=== PATIENT | female | born 1975 | race American Indian/Alaskan Native ===

== ENCOUNTER 2017-02-01 00:48 | Emergency (ER) | payer MEDICAID ==
[2017-02-01 06:37] VITALS: BP 110/70
[2017-02-01] MEDS ORDERED: DELTASONE PO ONE (08:39)
--- NOTE | 2017-02-01 08:55 | Emergency Department Report ---
HPI - General Chief Complaint: Sore Throat Time Seen by Provider: 02/01/17 08:25 - HPI HPI: Is a 41-year-old female presents to ED complaining of throat pain 3 days. Patient states she just had a baby 2 months ago and is currently breast- feeding. She describes throat pain as a burning type sensation. Patient states she has taken no medication for the pain. Patient states pain with swallowing and eating sometimes. Patient denies any chest pain. patient denies fever, chills, nausea, vomiting, abdominal pain, shortness of breath, difficulty breathing ED Past Medical Hx - Past Medical History Previous Medical History?: Yes Hx Hypertension: No Hx CVA: Yes (TIA 10/2015) Hx Heart Attack/AMI: Yes (A-FIB) Hx Congestive Heart Failure: No Hx Diabetes: No Hx Deep Vein Thrombosis: No Hx Headaches / Migraines: Yes Hx Asthma: No Hx COPD: No Additional medical history: Low blood pressure. AFIB. CHOLESTEROL, GESTATIONAL DIABETES - Surgical History Past Surgical History?: Yes Additional Surgical History: fibroids removed in 2009 - Social History Smoking Status: Former Smoker Substance Use Type: None - Medications Home Medications: Home Medications Medication Instructions Recorded Confirmed Last Taken Type Aspirin EC [Aspirin Enteric Coated 325 mg PO QDAY #30 tablet 11/05/15 12/16/15 12/02/15 Rx TAB] Simvastatin [Zocor TAB] 20 mg PO QHS #30 tablet 11/05/15 12/16/15 12/02/15 Rx Benzonatate [Tessalon Perles] 100 mg PO Q8HR #20 capsule 12/03/15 12/16/15 Unknown Rx Methocarbamol [Robaxin TAB] 750 mg PO Q8H PRN #30 tablet 12/16/15 Unknown Rx Naproxen [Naprosyn TAB] 500 mg PO BID PRN #20 tablet 12/16/15 Unknown Rx traMADol [Ultram 50 MG tab] 50 - 100 mg PO Q8HR PRN #20 tablet 12/16/15 Unknown Rx Fluticasone [Flonase] 1 spray NS QDAY #1 bottle 01/10/16 Unknown Rx predniSONE [Deltasone] 50 mg PO QDAY #5 tab 01/10/16 Unknown Rx Famotidine [Pepcid] 20 mg PO BID #40 tablet 02/01/17 Unknown Rx Ibuprofen [Motrin] 600 mg PO Q8H PRN #30 tablet 02/01/17 Unknown Rx ED Review of Systems ROS: Stated complaint: THROAT PAIN/FEVER Other details as noted in HPI Constitutional: denies: chills, fever Eyes: denies: eye pain, eye discharge, vision change ENT: throat pain. denies: ear pain, dental pain, hearing loss, congestion Respiratory: denies: cough, shortness of breath, wheezing Cardiovascular: denies: chest pain, palpitations Endocrine: no symptoms reported Gastrointestinal: denies: abdominal pain, nausea, vomiting, diarrhea, constipation, hematemesis Genitourinary: denies: urgency, dysuria, frequency, hematuria, discharge Musculoskeletal: denies: back pain, joint swelling, arthralgia Skin: denies: rash, lesions Neurological: denies: headache, weakness, numbness, paresthesias, abnormal gait Psychiatric: denies: anxiety, depression Hematological/Lymphatic: denies: easy bleeding, easy bruising Physical Exam - Physical Exam Vital Signs: Vital Signs 02/01/17 02/01/17 01:21 06:28 Temperature 98.8 F 98.7 F Pulse Rate 103 H 70 Respiratory 18 18 Rate Blood Pressure 118/78 110/70 O2 Sat by Pulse 99 98 Oximetry Physical Exam: GENERAL: Alert and oriented x3, no apparent distress, Normal Gait, atraumatic. HEAD: Head is normocephalic and a-traumatic. EYES: Extra ocular muscles are intact. Pupils are equal, round, and reactive to light and accommodation. EARS: symetrical, atraumatic, non tender, ear canal clear and moderate cerumen, tympanic membrance non inflamed. gross auditory nml bilaterally. NOSE: Nose symetrical, Nontender,Nares appeared normal. MOUTH:Mouth is well hydrated and without lesions. Tonsils nonerythematous or swollen, Uvula midline, Tongue not elevated. Mucous membranes are moist. Posterior pharynx clear, no exudate or lesions. Patent airways. NECK: Supple. Non edematous, No carotid bruits. Anterior cervical lymphadenopathy or thyromegaly. No C-spine tenderness LUNGS: Symetrical with respiration, No wheezing, no rales or crackles, CTAB. HEART: S1, S2 present, regular rate and rhythm without murmur, no rubs, no gallops. ABDOMEN: No organomegaly was noted,Positive bowel sounds, soft, and non- distended. . Nontender to palpation on all Quadrants, NO CVA tenderness. NEUROLOGIC: No focal Deficit, Cranial nerves II through XII are grossly intact. No loss of sensation, PSYCHIATRIC: Mood is congruent with affect, denies suicidal or homicidal ideations. SKIN: Warm and dry, No lesions, No ulceration or induration present. ED Course Vital Signs 02/01/17 02/01/17 01:21 06:28 Temperature 98.8 F 98.7 F Pulse Rate 103 H 70 Respiratory 18 18 Rate Blood Pressure 118/78 110/70 O2 Sat by Pulse 99 98 Oximetry ED Medical Decision Making - Medical Decision Making 41-year-old female presents with pharyngitis. ED course: Patient received prednisone and Magic mouthwash in ED. Tests rapid strep test negative. Discussed findings with patient. Discussed the patient follow up with primary care physician. Discussed symptomatic relief with patient. Discussed Motrin as pain. Discussed rest, sent from acid which foods. - Differential Diagnosis 1 acid reflux 2. Pharyngitis viral 3. Common cold 4. Strep throat Critical care attestation.: If time is entered above; I have spent that time in minutes in the direct care of this critically ill patient, excluding procedure time. ED Disposition Clinical Impression: Pharyngitis Qualifiers: Pharyngitis/tonsillitis etiology: unspecified etiology Qualified Code(s): J02.9 - Acute pharyngitis, unspecified Acid reflux Qualifiers: Esophagitis presence: without esophagitis Qualified Code(s): K21.9 - Gastro- esophageal reflux disease without esophagitis Disposition: DISCHARGED TO HOME OR SELFCARE Is pt being admited?: No Does the pt Need Aspirin: No Condition: Stable Instructions: Famotidine (By mouth), Pharyngitis (ED), Gastroesophageal Reflux Disease (ED), Cold Symptoms (ED) Prescriptions: Famotidine [Pepcid] 20 mg PO BID #40 tablet Ibuprofen [Motrin] 600 mg PO Q8H PRN #30 tablet PRN Reason: Pain Referrals: PRIMARY MD ROSINA [Primary Care Provider] - 3-5 Days ABENA RAMOS MD [Referring] - 3-5 Days [facility] [Outside] - 3-5 Days [facility] [Outside] - 3-5 Days [facility] [Outside] - 3-5 Days Forms: Work/School Release Form(ED) Time of Disposition: 09:57
[2017-02-01] MEDS ORDERED: MAGIC MOUTHWASH PO ONE (09:00)
== END 2017-02-01 10:28 | disposition home or self-care (01) ==
LOC: ED 00:48
DX: K21.9 Gastro-esophageal reflux disease without esophagitis (principal); J02.9 Acute pharyngitis, unspecified; I25.2 Old myocardial infarction; G43.909 Migraine, unspecified, not intractable, without status migrainosus; Z86.73 Personal history of transient ischemic attack (TIA), and cerebral infarction without residual deficits; Z87.891 Personal history of nicotine dependence
CPT/HCPCS: 87116; 87430; 99282; J7512

== ENCOUNTER 2018-04-07 22:46 | Emergency (ER) | payer MEDICAID ==
[2018-04-07 23:55] LABS: BUN/Creatinine Ratio 13; Blood Urea Nitrogen 9 mg/dL (7-17); Calcium 8.3 mg/dL (8.4-10.2); Hemolysis Index 6
[2018-04-08 00:25] LABS: Basophils % (Auto) 0.3 % (0.0-1.8); Eosinophils # (Auto) 0.1 K/mm3 (0.0-0.4); Eosinophils % (Auto) 1.7 % (0.0-4.3); Hematocrit 38.1 % (30.3-42.9); Hemoglobin 12.7 gm/dl (10.1-14.3); Lymphocytes # (Auto) 3.3 K/mm3 (1.2-5.4); Lymphocytes % (Auto) 49.8 % (13.4-35.0); Mean Corpuscular HGB Conc 33 % (30-34); Mean Corpuscular Hemoglobin 30 pg (28-32); Mean Corpuscular Volume 89 fl (79-97); Monocytes # (Auto) 0.3 K/mm3 (0.0-0.8); Platelet Count 289 K/mm3 (140-440); Red Blood Count 4.27 M/mm3 (3.65-5.03); Red Cell Distribution Width 13.8 % (13.2-15.2)
--- NOTE | 2018-04-08 02:06 | Emergency Department Report ---
ED Female HPI - General Chief complaint: Urogenital-Female Stated complaint: ABDOMINAL,VAGINAL PAIN Time Seen by Provider: 04/08/18 02:02 Source: patient Mode of arrival: Ambulatory Limitations: No Limitations - History of Present Illness Initial comments: Patient presents with recurrence of vaginal bleeding which occurred 2 weeks ago , was heavy, but resolved and which has now returned again over the past week, using proximally 20-24 pads a day. She has a prior history of fibroids, but reports that she had 2 operations for this in 2011, and 2016. She is not , does not feel , has no fever chills or diaphoresis, and otherwise feels stable, but has never had bleeding at the significance. She has minor lower abdominal discomfort, without radiation, no chest pain, no headache, no lightheadedness, no syncope. She has a history of intermittent atrial fibrillation, reports that she had discussed with her doctor about taking blood thinners, but reports that this was never followed up on, although she reports she does take aspirin daily as a result of her atrial fibrillation. She takes no other blood thinners. MD Complaint: vaginal bleeding Onset/Timin -: week(s) Radiation: suprapubic, other (pelvic) Severity: moderate Severity scale (0 -10): 4 Quality: cramping Consistency: intermittent Improves with: none Worsens with: none Are you Now?: No Associated Symptoms: vaginal bleeding - Related Data Previous Rx's Medication Instructions Recorded Last Taken Type Aspirin EC [Aspirin Enteric Coated 325 mg PO QDAY #30 tablet 11/05/15 12/02/15 Rx TAB] Simvastatin [Zocor TAB] 20 mg PO QHS #30 tablet 11/05/15 12/02/15 Rx Benzonatate [Tessalon Perles] 100 mg PO Q8HR #20 capsule 12/03/15 Unknown Rx Methocarbamol [Robaxin TAB] 750 mg PO Q8H PRN #30 tablet 12/16/15 Unknown Rx Naproxen [Naprosyn TAB] 500 mg PO BID PRN #20 tablet 12/16/15 Unknown Rx traMADol [Ultram 50 MG tab] 50 - 100 mg PO Q8HR PRN #20 tablet 12/16/15 Unknown Rx Fluticasone [Flonase] 1 spray NS QDAY #1 bottle 01/10/16 Unknown Rx predniSONE [Deltasone] 50 mg PO QDAY #5 tab 01/10/16 Unknown Rx Famotidine [Pepcid] 20 mg PO BID #40 tablet 02/01/17 Unknown Rx Ibuprofen [Motrin] 600 mg PO Q8H PRN #30 tablet 02/01/17 Unknown Rx HYDROcodone/APAP 5-325 [[place] 1 each PO Q6HR PRN #20 tablet 04/08/18 Unknown Rx 5/325] medroxyPROGESTERone ACETATE 10 mg PO QDAY #5 tablet 04/08/18 Unknown Rx [Provera] Allergies Allergy/AdvReac Type Severity Reaction Status Date / Time acetaminophen [From Percocet] Allergy Nausea Verified 04/07/18 23:03 oxycodone HCl [From Percocet] Allergy Nausea Verified 12/15/15 15:55 ED Review of Systems ROS: Stated complaint: ABDOMINAL,VAGINAL PAIN Other details as noted in HPI Comment: All other systems reviewed and negative Constitutional: denies: chills, fever ENT: denies: ear pain, throat pain Respiratory: denies: cough, shortness of breath, wheezing Cardiovascular: denies: chest pain, palpitations Endocrine: no symptoms reported Gastrointestinal: denies: abdominal pain, nausea, diarrhea Genitourinary: denies: urgency, dysuria, frequency, hematuria Musculoskeletal: denies: back pain, joint swelling, arthralgia Skin: denies: rash, lesions Neurological: denies: headache, weakness, paresthesias Psychiatric: denies: anxiety, depression Hematological/Lymphatic: easy bleeding (vaginally) ED Past Medical Hx - Past Medical History Hx Hypertension: No Hx CVA: Yes (TIA 10/2015) Hx Heart Attack/AMI: Yes (A-FIB) Hx Congestive Heart Failure: No Hx Diabetes: No Hx Deep Vein Thrombosis: No Hx Headaches / Migraines: Yes Hx Asthma: No Hx COPD: No Additional medical history: Low blood pressure,anemic with blood transfusion. AFIB. CHOLESTEROL, GESTATIONAL DIABETES-both resolved post - Surgical History Additional Surgical History: fibroids removed in 2009, fibroids removed again last year PP with blood transfusion - Social History Smoking Status: Current Every Day Smoker Substance Use Type: None - Medications Home Medications: Home Medications Medication Instructions Recorded Confirmed Last Taken Type Aspirin EC [Aspirin Enteric Coated 325 mg PO QDAY #30 tablet 11/05/15 12/16/15 12/02/15 Rx TAB] Simvastatin [Zocor TAB] 20 mg PO QHS #30 tablet 11/05/15 12/16/15 12/02/15 Rx Benzonatate [Tessalon Perles] 100 mg PO Q8HR #20 capsule 12/03/15 12/16/15 Unknown Rx Methocarbamol [Robaxin TAB] 750 mg PO Q8H PRN #30 tablet 12/16/15 Unknown Rx Naproxen [Naprosyn TAB] 500 mg PO BID PRN #20 tablet 12/16/15 Unknown Rx traMADol [Ultram 50 MG tab] 50 - 100 mg PO Q8HR PRN #20 tablet 12/16/15 Unknown Rx Fluticasone [Flonase] 1 spray NS QDAY #1 bottle 01/10/16 Unknown Rx predniSONE [Deltasone] 50 mg PO QDAY #5 tab 01/10/16 Unknown Rx Famotidine [Pepcid] 20 mg PO BID #40 tablet 02/01/17 Unknown Rx Ibuprofen [Motrin] 600 mg PO Q8H PRN #30 tablet 02/01/17 Unknown Rx HYDROcodone/APAP 5-325 [[place] 1 each PO Q6HR PRN #20 tablet 04/08/18 Unknown Rx 5/325] medroxyPROGESTERone ACETATE 10 mg PO QDAY #5 tablet 04/08/18 Unknown Rx [Provera] ED Physical Exam - General Limitations: No Limitations General appearance: alert, in no apparent distress - Head Head exam: Present: atraumatic, normocephalic - Eye Eye exam: Present: PERRL, EOMI - ENT ENT exam: Present: normal exam, mucous membranes moist - Neck Neck exam: Present: normal inspection - Respiratory Respiratory exam: Present: normal lung sounds bilaterally. Absent: respiratory distress, wheezes, rales, rhonchi - Cardiovascular Cardiovascular Exam: Present: regular rate - GI/Abdominal GI/Abdominal exam: Present: soft, normal bowel sounds. Absent: tenderness, guarding, rebound, rigid - Extremities Exam Extremities exam: Present: normal inspection - Back Exam Back exam: Present: normal inspection - Neurological Exam Neurological exam: Present: alert, oriented X3 - Psychiatric Psychiatric exam: Present: normal affect, normal mood - Skin Skin exam: Present: warm, dry, intact, normal color. Absent: rash ED Course Vital Signs 04/07/18 04/08/18 22:45 03:59 Temperature 36.7 C Pulse Rate 94 H 68 Respiratory 16 17 Rate Blood Pressure 99/62 Blood Pressure 82/32 [Left] O2 Sat by Pulse 98 99 Oximetry - Reevaluation(s) Reevaluation #1: 04/08/18 04:44 Patient is stable after return from ultrasound, and after medroxyprogesterone given, and on recheck at 1 hour, reports that she believes flow has reduced noticeably. ED Medical Decision Making - Lab Data Result diagrams: 04/07/18 23:07 04/07/18 23:07 - Radiology Data Pelvic ultrasound shows small fibroid, and small ovarian cyst on right, but otherwise unremarkable. - Medical Decision Making Patient is clinically stable, not orthostatic, resting fairly comfortably, has stable ultrasound, and likely has dysfunctional uterine bleeding, which will be treated with medroxyprogesterone, which first dose was given in the emergency department, she will be continued for 5 days, and referred to oncologist, Dr. Dimitri Coy for follow-up. She'll be given [place] for discomfort. She is not currently working, and will be able to rest for the time being. Critical Care Time: No Critical care attestation.: If time is entered above; I have spent that time in minutes in the direct care of this critically ill patient, excluding procedure time. ED Disposition Clinical Impression: Dysfunctional uterine bleeding Disposition: DC-01 TO HOME OR SELFCARE Is pt being admited?: No Does the pt Need Aspirin: No Condition: Stable Instructions: Dysfunctional Uterine Bleeding (ED) Additional Instructions: We evaluated today for vaginal bleeding, and laboratory evaluation was stable, and ultrasound was also stable. Hormone, medroxyprogesterone, to decrease bleeding, and once she did continue this for an additional 5 days. Follow with supervisor [employer] that we have referred to, Dr. Dimitri Coy, make arrangements to be seen in the coming week or so. Because you have been taking aspirin, and because this didn't blood, we watch his stop taking aspirin until you have stopped the bleeding completely for 24 hours, but because he also had irregular heartbeat, atrial fibrillation, you should start back on the aspirin as soon as you bleeding has been completely stopped for one full day. Prescriptions: HYDROcodone/APAP 5-325 [[place] 5/325] 1 each PO Q6HR PRN #20 tablet PRN Reason: Pain medroxyPROGESTERone ACETATE [Provera] 10 mg PO QDAY #5 tablet Referrals: DANNY DACOSTA MD [Primary Care Provider] - 3-5 Days DIMITRI COY MD [Staff Physician] - 3-5 Days Time of Disposition: 04:48
[2018-04-08] MEDS ORDERED: DEPO-PROVERA (CONTRACEPTION) IM ONE (02:50)
--- NOTE | 2018-04-08 03:31 | Ultrasound Report ---
FINAL REPORT EXAM: US PELVIC COMPLETE HISTORY: vaginal bleeding, neg preg test TECHNIQUE: Transabdominal imaging was obtained of the pelvis including Doppler interrogation of the adnexa. FINDINGS: The uterus is anteverted measuring 9.9 cm x 5.1 cm x 5.7 cm. The endometrial thickness is 7.4 mm. Along the anterior wall of the uterus left midline is a 2.6 cm hypoechoic myometrial mass compatible with fibroid. Free fluid is not seen. The right ovary is normal size contour and echotexture measuring 2.6 cm x 1.3 cm x 2.6 cm. The left ovary measures 4.8 cm x 3.8 cm x 2.7 cm. Within the left ovary is a 2.5 cm anechoic cyst. IMPRESSION: 2.6 cm fibroid in the left side of the lower body of the uterus. Homogeneous endometrium measuring 7.4 mm in thickness. 2.5 cm left ovarian cyst. No evidence of free fluid.
[2018-04-08] MEDS ORDERED: NACL 0.9% 1000 ML 1,000 ML ONE (03:45)
[2018-04-08] MEDS ORDERED: NACL 0.9% 1000 ML 1,000 ML IV ONE (04:00)
[2018-04-08 04:58] VITALS: BP 98/58
== END 2018-04-08 05:20 | disposition home or self-care (01) ==
LOC: ED 22:46
DX: N93.8 Other specified abnormal uterine and vaginal bleeding (principal); R10.2 Pelvic and perineal pain; G43.909 Migraine, unspecified, not intractable, without status migrainosus; D25.9 Leiomyoma of uterus, unspecified; D64.9 Anemia, unspecified; F17.200 Nicotine dependence, unspecified, uncomplicated; Z88.6 Allergy status to analgesic agent; Z88.5 Allergy status to narcotic agent; Z86.73 Personal history of transient ischemic attack (TIA), and cerebral infarction without residual deficits
CPT/HCPCS: 36415; 76856; 80048; 84702; 85025; 86850; 86900; 86901; 96372; 99284; J1050; J7030

== ENCOUNTER 2018-04-11 23:45 | Emergency (ER) | payer MEDICAID ==
[2018-04-12] MEDS ORDERED: ZOFRAN ODT PO ONE (00:27)
[2018-04-12] MEDS ORDERED: MOTRIN PO ONE (00:27)
[2018-04-12] MEDS ORDERED: PERCOCET 5/325 PO ONE (00:27)
--- NOTE | 2018-04-12 00:34 | Emergency Department Report ---
ED Syncope HPI - General Stated Complaint: SYNCOPE Time Seen by Provider: 04/12/18 00:19 - History of Present Illness Initial Comments: Ms. Tavarez is a 43 yo female with hx of TIA, atrial fibrillation and TIA. She had a syncopal episode at a [facility]. The episode occurred a few minutes after a veterinary just put her dog to sleep. She did not have preceding illness. She struck her head on the floor with hard thump. She has posterior headache and upper/lower back pain. No chest pain. No dyspnea. She takes ASA and glyburide. +tobacco use Recently seen in our ER 4 days ago for vaginal bleeding and uterine fibroids. Timing/Prior Episodes: remote history Precipitating Factors: Positive: none Context: standing Loss of Consciousness: unsure (4 minutes of decreased responsiveness, she was breathing the entire time) Current Symptoms: back to normal, headache - Related Data Allergies/Adverse Reactions: Allergies acetaminophen [From Percocet] Allergy (Verified 04/07/18 23:03) Nausea pt denies allergy to tylenol only oxycodone oxycodone HCl [From Percocet] Allergy (Verified 12/15/15 15:55) Nausea Home Medications: Ambulatory Orders Aspirin EC [Aspirin Enteric Coated TAB] 325 mg PO QDAY #30 tablet 11/05/15 Simvastatin [Zocor TAB] 20 mg PO QHS #30 tablet 11/05/15 Benzonatate [Tessalon Perles] 100 mg PO Q8HR #20 capsule 12/03/15 Methocarbamol [Robaxin TAB] 750 mg PO Q8H PRN #30 tablet 12/16/15 Naproxen [Naprosyn TAB] 500 mg PO BID PRN #20 tablet 12/16/15 traMADol [Ultram 50 MG tab] 50 - 100 mg PO Q8HR PRN #20 tablet 12/16/15 Fluticasone [Flonase] 1 spray NS QDAY #1 bottle 01/10/16 predniSONE [Deltasone] 50 mg PO QDAY #5 tab 01/10/16 Famotidine [Pepcid] 20 mg PO BID #40 tablet 02/01/17 Ibuprofen [Motrin] 600 mg PO Q8H PRN #30 tablet 02/01/17 HYDROcodone/APAP 5-325 [[place] 5/325] 1 each PO Q6HR PRN #20 tablet 04/08/18 medroxyPROGESTERone ACETATE [Provera] 10 mg PO QDAY #5 tablet 04/08/18 Cyclobenzaprine [Flexeril] 10 mg PO TID PRN #10 tablet 04/12/18 HYDROcodone/APAP 5-325 [[place] 5/325] 1 each PO Q6HR PRN #10 tablet 04/12/18 ED Review of Systems ROS: Stated complaint: SYNCOPE Other details as noted in HPI ED Past Medical Hx - Past Medical History Hx Hypertension: No Hx CVA: Yes (TIA 10/2015) Hx Heart Attack/AMI: No (A-FIB) Hx Congestive Heart Failure: No Hx Diabetes: No Hx Deep Vein Thrombosis: No Hx Headaches / Migraines: Yes Hx Asthma: No Hx COPD: No Additional medical history: Low blood pressure,anemic with blood transfusion. AFIB. CHOLESTEROL, GESTATIONAL DIABETES-both resolved post - Surgical History Additional Surgical History: fibroids removed in 2009, fibroids removed again last year PP with blood transfusion - Social History Smoking Status: Current Every Day Smoker Substance Use Type: None - Medications Home Medications: Home Medications Medication Instructions Recorded Confirmed Last Taken Type Aspirin EC [Aspirin Enteric Coated 325 mg PO QDAY #30 tablet 11/05/15 12/16/15 12/02/15 Rx TAB] Simvastatin [Zocor TAB] 20 mg PO QHS #30 tablet 11/05/15 12/16/15 12/02/15 Rx Benzonatate [Tessalon Perles] 100 mg PO Q8HR #20 capsule 12/03/15 12/16/15 Unknown Rx Methocarbamol [Robaxin TAB] 750 mg PO Q8H PRN #30 tablet 12/16/15 Unknown Rx Naproxen [Naprosyn TAB] 500 mg PO BID PRN #20 tablet 12/16/15 Unknown Rx traMADol [Ultram 50 MG tab] 50 - 100 mg PO Q8HR PRN #20 tablet 12/16/15 Unknown Rx Fluticasone [Flonase] 1 spray NS QDAY #1 bottle 01/10/16 Unknown Rx predniSONE [Deltasone] 50 mg PO QDAY #5 tab 01/10/16 Unknown Rx Famotidine [Pepcid] 20 mg PO BID #40 tablet 02/01/17 Unknown Rx Ibuprofen [Motrin] 600 mg PO Q8H PRN #30 tablet 02/01/17 Unknown Rx HYDROcodone/APAP 5-325 [[place] 1 each PO Q6HR PRN #20 tablet 04/08/18 Unknown Rx 5/325] medroxyPROGESTERone ACETATE 10 mg PO QDAY #5 tablet 04/08/18 Unknown Rx [Provera] Cyclobenzaprine [Flexeril] 10 mg PO TID PRN #10 tablet 04/12/18 Unknown Rx HYDROcodone/APAP 5-325 [[place] 1 each PO Q6HR PRN #10 tablet 04/12/18 Unknown Rx 5/325] ED Physical Exam - General General appearance: alert, in no apparent distress - Head Head exam: Present: atraumatic, normocephalic, other (occipital tenderness no hematoma no scalp laceration) - Eye Eye exam: Present: normal appearance, PERRL. Absent: scleral icterus, conjunctival injection - ENT ENT exam: Present: mucous membranes moist - Neck Neck exam: Present: normal inspection. Absent: tenderness, meningismus - Respiratory Respiratory exam: Present: normal lung sounds bilaterally. Absent: respiratory distress, wheezes, rales, rhonchi - Cardiovascular Cardiovascular Exam: Present: regular rate, normal rhythm, normal heart sounds. Absent: systolic murmur, diastolic murmur, rubs, gallop - GI/Abdominal GI/Abdominal exam: Present: soft, normal bowel sounds. Absent: distended, tenderness, guarding, rebound - Extremities Exam Extremities exam: Present: normal inspection - Back Exam Back exam: Present: normal inspection - Neurological Exam Neurological exam: Present: alert, oriented X3 - Psychiatric Psychiatric exam: Present: normal affect, normal mood - Skin Skin exam: Present: warm, dry, intact, normal color. Absent: rash - Other Other exam information: GCS 15 +thoracic and lumbar tenderness ED Course Vital Signs 04/12/18 00:57 Temperature 98 F Pulse Rate 79 Respiratory 18 Rate Blood Pressure 112/63 [Left] O2 Sat by Pulse 100 Oximetry ED Medical Decision Making - Lab Data Result diagrams: 04/12/18 00:45 04/12/18 00:45 Laboratory Results - last 24 hr 04/12/18 04/12/18 00:45 00:45 WBC 6.3 RBC 4.12 Hgb 12.3 Hct 36.8 MCV 89 MCH 30 MCHC 33 RDW 13.9 Plt Count 264 Lymph % (Auto) 42.9 H [place] % (Auto) 7.2 Eos % (Auto) 1.6 Baso % (Auto) 0.3 Lymph # 2.7 [place] # 0.5 Eos # 0.1 Baso # 0.0 Seg Neutrophils % 48.0 Seg Neutrophils # 3.0 Sodium 140 Potassium 3.9 Chloride 106.7 Carbon Dioxide 23 Anion Gap 14 BUN 11 Creatinine 0.7 Estimated GFR > 60 BUN/Creatinine Ratio 16 Glucose 110 H Calcium 8.3 L - EKG Data EKG shows normal: sinus rhythm, axis, intervals, QRS complexes, ST-T waves Rate: normal - EKG Data Interpretation: normal EKG 04/12/18 01:44 NSR nl rate nl axis nl intervals no ST-T signs of ischemia no ST elevation rate 65 bpm - Radiology Data Radiology results: report reviewed CT head and C-spine: No fracture noted intracranial hemorrhage Thoracic and lumbar spine x-rays without fracture. - Medical Decision Making Ms. Tavarez presents after vasovagal syncopal episode during a very stressful situation. The episode occurred while watching her dog being euthanized. She had closed head injury due to the fall. She also had lower and upper back pain due to fall. No evidence of severe injury. Prescribed [place] and Flexeril. Normal EKG. PERC negative for PE. Critical care attestation.: If time is entered above; I have spent that time in minutes in the direct care of this critically ill patient, excluding procedure time. ED Disposition Clinical Impression: CHI (closed head injury), Syncope, Back pain Disposition: TO HOME OR SELFCARE Is pt being admited?: No Does the pt Need Aspirin: No Condition: Stable Instructions: Syncope (ED), Minor Head Injury (ED) Prescriptions: Cyclobenzaprine [Flexeril] 10 mg PO TID PRN #10 tablet PRN Reason: Muscle Spasm HYDROcodone/APAP 5-325 [[place] 5/325] 1 each PO Q6HR PRN #10 tablet PRN Reason: Pain Referrals: PRIMARY CARE, [Referring] - 3-5 Days Time of Disposition: 02:37
[2018-04-12] MEDS ORDERED: NORCO 5/325 PO ONE (00:35)
[2018-04-12 01:07] LABS: Basophils % (Auto) 0.3 % (0.0-1.8); Eosinophils # (Auto) 0.1 K/mm3 (0.0-0.4); Eosinophils % (Auto) 1.6 % (0.0-4.3); Hematocrit 36.8 % (30.3-42.9); Hemoglobin 12.3 gm/dl (10.1-14.3); Lymphocytes # (Auto) 2.7 K/mm3 (1.2-5.4); Lymphocytes % (Auto) 42.9 % (13.4-35.0); Mean Corpuscular HGB Conc 33 % (30-34); Mean Corpuscular Hemoglobin 30 pg (28-32); Mean Corpuscular Volume 89 fl (79-97); Monocytes # (Auto) 0.5 K/mm3 (0.0-0.8); Monocytes % (Auto) 7.2 % (0.0-7.3); Platelet Count 264 K/mm3 (140-440); Red Blood Count 4.12 M/mm3 (3.65-5.03); Red Cell Distribution Width 13.9 % (13.2-15.2)
[2018-04-12 01:17] LABS: BUN/Creatinine Ratio 16; Blood Urea Nitrogen 11 mg/dL (7-17); Calcium 8.3 mg/dL (8.4-10.2); Hemolysis Index 4
--- NOTE | 2018-04-12 01:49 | Cat Scan Report ---
FINAL REPORT EXAM: CT HEAD/BRAIN WO CON HISTORY: Syncope COMPARISON: CT of the head from January 2016. TECHNIQUE: Axial images obtained skull base through vertex. FINDINGS: No acute intracranial hemorrhage, midline shift or pathologic extra axial fluid collection. Ventricles and cisterns are normal in size and configuration for the patient's age. Kasper-white differentiation preserved. Calvarium grossly intact. Visualized ocular globes are grossly unremarkable. Mild mucosal thickening of the visualized paranasal sinuses. Mastoid air cells are clear. IMPRESSION: No grossly acute intracranial abnormality.
--- NOTE | 2018-04-12 01:53 | Cat Scan Report ---
FINAL REPORT EXAM: CT CERVICAL SPINE WO CON HISTORY: Syncope COMPARISON: CT of the cervical spine from December 2015. TECHNIQUE: Axial images obtained through the cervical spine. Additional sagittal and coronal reformatted images were obtained. FINDINGS: Straightening of the normal lordotic curvature of the cervical spine. Cervical vertebral body heights are preserved. No acute fracture or traumatic subluxation. Odontoid process, articular pillars and occipital condyles are intact. Mild endplate osteophyte at several levels. Minimal canal stenosis C4-C5 and C5-C6 levels. IMPRESSION: No acute fracture or subluxation of the cervical spine. There is straightening of the normal lordotic curvature which may relate to patient positioning or muscle spasm. Minimal degenerative changes.
--- NOTE | 2018-04-12 02:14 | XRay Report ---
FINAL REPORT EXAM: XR SPINE THORACIC 2V HISTORY: syncope fall back pain COMPARISON: None available. FINDINGS: Three views of the thoracic spine obtained. Thoracic vertebral body heights and disc heights are preserved. Pedicles are intact. Normal kyphotic curvature. IMPRESSION: Normal height and alignment of the thoracic spine.
--- NOTE | 2018-04-12 02:17 | XRay Report ---
FINAL REPORT EXAM: XR SPINE LUMBOSACRAL 2-3V HISTORY: back pain COMPARISON: None available. FINDINGS: Three views of the lumbar spine obtained. Lumbar vertebral body heights. Mild loss of disc height L4-L5 level. Pedicles are intact. No spondylolisthesis. Minimal levoconvex curvature. IMPRESSION: Minimal scoliotic curvature which may be positional. Lumbar vertebral body heights are preserved. Mild focal degenerative changes L4-L5 level.
[2018-04-12 03:16] VITALS: BP 110/78
== END 2018-04-12 03:25 | disposition home or self-care (01) ==
LOC: ED 23:45
DX: S09.90XA Unspecified injury of head, initial encounter (principal); M54.5 Low back pain; R55 Syncope and collapse; G43.909 Migraine, unspecified, not intractable, without status migrainosus; F17.200 Nicotine dependence, unspecified, uncomplicated; Z86.73 Personal history of transient ischemic attack (TIA), and cerebral infarction without residual deficits; Z88.6 Allergy status to analgesic agent; Z79.82 Long term (current) use of aspirin; W18.30XA Fall on same level, unspecified, initial encounter; Y93.89 Activity, other specified; Y92.89 Other specified places as the place of occurrence of the external cause; Y99.8 Other external cause status
CPT/HCPCS: 36415; 70450; 72070; 72100; 72125; 80048; 85025; 93005; 93010; 99285; Q0162

== ENCOUNTER 2018-05-27 17:11 | Emergency (ER) | payer MEDICAID ==
[2018-05-27 17:27] VITALS: BP 120/83
--- NOTE | 2018-05-27 19:19 | Emergency Department Report ---
ED Back Pain/Injury HPI - General Chief Complaint: Fall Stated Complaint: RT HIP/BACK PAIN Time Seen by Provider: 05/27/18 19:16 Source: patient Limitations: No Limitations - History of Present Illness Initial Comments: This is a 43-year-old female nontoxic, well nourished in appearance, no acute signs of distress presents to the ED with c/o of acute lower back pain and hip pain. Patient stated that she had a fall this morning on the stress and landed on her lower back area. Patient denies any radiation of pain. Patient denies any other trauma. Denies any bladder or bowel instability. Patient denies any urinary symptoms. Denies any fever, chills, nausea, vomiting, headache, stiff neck, chest pain or shortness of breath. Patient denies any numbness or tingling. Allergies includes Perorcet. MD Complaint: back pain -: This morning Place: street Radiation: none Severity: mild Severity scale (0 -10): 8 Quality: aching Consistency: constant Improves With: immobilization, supine, sitting upright Worsens With: movement, walking Context: fall Associated Symptoms: denies: confusion, weakness, chest pain, numbness, difficulty walking, cough, difficulty urinating, diaphoresis, incontinence, fever/chills, constipation, headaches, abdominal pain, loss of appetite, malaise , nausea/vomiting, rash, seizure, shortness of breath, syncope - Related Data Previous Rx's Medication Instructions Recorded Last Taken Type Aspirin EC [Aspirin Enteric Coated 325 mg PO QDAY #30 tablet 11/05/15 12/02/15 Rx TAB] Simvastatin [Zocor TAB] 20 mg PO QHS #30 tablet 11/05/15 12/02/15 Rx Benzonatate [Tessalon Perles] 100 mg PO Q8HR #20 capsule 12/03/15 Unknown Rx Methocarbamol [Robaxin TAB] 750 mg PO Q8H PRN #30 tablet 12/16/15 Unknown Rx Naproxen [Naprosyn TAB] 500 mg PO BID PRN #20 tablet 12/16/15 Unknown Rx traMADol [Ultram 50 MG tab] 50 - 100 mg PO Q8HR PRN #20 tablet 12/16/15 Unknown Rx Fluticasone [Flonase] 1 spray NS QDAY #1 bottle 01/10/16 Unknown Rx predniSONE [Deltasone] 50 mg PO QDAY #5 tab 01/10/16 Unknown Rx Famotidine [Pepcid] 20 mg PO BID #40 tablet 02/01/17 Unknown Rx Ibuprofen [Motrin] 600 mg PO Q8H PRN #30 tablet 02/01/17 Unknown Rx HYDROcodone/APAP 5-325 [[place] 1 each PO Q6HR PRN #20 tablet 04/08/18 Unknown Rx 5/325] medroxyPROGESTERone ACETATE 10 mg PO QDAY #5 tablet 04/08/18 Unknown Rx [Provera] Cyclobenzaprine [Flexeril] 10 mg PO TID PRN #10 tablet 04/12/18 Unknown Rx HYDROcodone/APAP 5-325 [[place] 1 each PO Q6HR PRN #10 tablet 04/12/18 Unknown Rx 5/325] Cyclobenzaprine [Flexeril] 10 mg PO QHS PRN #10 tablet 05/27/18 Unknown Rx Ibuprofen [Motrin] 600 mg PO Q8H PRN #30 tablet 05/27/18 Unknown Rx Allergies Allergy/AdvReac Type Severity Reaction Status Date / Time acetaminophen [From Percocet] Allergy Nausea Verified 04/07/18 23:03 oxycodone HCl [From Percocet] Allergy Nausea Verified 12/15/15 15:55 ED Review of Systems ROS: Stated complaint: RT HIP/BACK PAIN Other details as noted in HPI Constitutional: denies: chills, fever Eyes: denies: eye pain, eye discharge, vision change ENT: denies: ear pain, throat pain Respiratory: denies: cough, shortness of breath, wheezing Cardiovascular: denies: chest pain, palpitations Endocrine: no symptoms reported Gastrointestinal: denies: abdominal pain, nausea, diarrhea Genitourinary: denies: urgency, dysuria, discharge Musculoskeletal: back pain, arthralgia. denies: joint swelling Skin: denies: rash, lesions Neurological: denies: headache, weakness, paresthesias Psychiatric: denies: anxiety, depression Hematological/Lymphatic: denies: easy bleeding, easy bruising ED Past Medical Hx - Past Medical History Hx Hypertension: No Hx CVA: Yes (TIA 10/2015) Hx Heart Attack/AMI: No (A-FIB) Hx Congestive Heart Failure: No Hx Diabetes: No Hx Deep Vein Thrombosis: No Hx Headaches / Migraines: Yes Hx Asthma: No Hx COPD: No Additional medical history: Low blood pressure,anemic with blood transfusion. AFIB. CHOLESTEROL, GESTATIONAL DIABETES-both resolved post - Surgical History Additional Surgical History: fibroids removed in 2009, fibroids removed again last year PP with blood transfusion - Social History Smoking Status: Current Every Day Smoker - Medications Home Medications: Home Medications Medication Instructions Recorded Confirmed Last Taken Type Aspirin EC [Aspirin Enteric Coated 325 mg PO QDAY #30 tablet 11/05/15 12/16/15 12/02/15 Rx TAB] Simvastatin [Zocor TAB] 20 mg PO QHS #30 tablet 11/05/15 12/16/15 12/02/15 Rx Benzonatate [Tessalon Perles] 100 mg PO Q8HR #20 capsule 12/03/15 12/16/15 Unknown Rx Methocarbamol [Robaxin TAB] 750 mg PO Q8H PRN #30 tablet 12/16/15 Unknown Rx Naproxen [Naprosyn TAB] 500 mg PO BID PRN #20 tablet 12/16/15 Unknown Rx traMADol [Ultram 50 MG tab] 50 - 100 mg PO Q8HR PRN #20 tablet 12/16/15 Unknown Rx Fluticasone [Flonase] 1 spray NS QDAY #1 bottle 01/10/16 Unknown Rx predniSONE [Deltasone] 50 mg PO QDAY #5 tab 01/10/16 Unknown Rx Famotidine [Pepcid] 20 mg PO BID #40 tablet 02/01/17 Unknown Rx Ibuprofen [Motrin] 600 mg PO Q8H PRN #30 tablet 02/01/17 Unknown Rx HYDROcodone/APAP 5-325 [[place] 1 each PO Q6HR PRN #20 tablet 04/08/18 Unknown Rx 5/325] medroxyPROGESTERone ACETATE 10 mg PO QDAY #5 tablet 04/08/18 Unknown Rx [Provera] Cyclobenzaprine [Flexeril] 10 mg PO TID PRN #10 tablet 04/12/18 Unknown Rx HYDROcodone/APAP 5-325 [[place] 1 each PO Q6HR PRN #10 tablet 04/12/18 Unknown Rx 5/325] Cyclobenzaprine [Flexeril] 10 mg PO QHS PRN #10 tablet 05/27/18 Unknown Rx Ibuprofen [Motrin] 600 mg PO Q8H PRN #30 tablet 05/27/18 Unknown Rx ED Physical Exam - General Limitations: No Limitations General appearance: alert, in no apparent distress - Head Head exam: Present: atraumatic, normocephalic - Eye Eye exam: Present: normal appearance Pupils: Present: normal accommodation - ENT ENT exam: Present: normal exam, mucous membranes moist - Neck Neck exam: Present: normal inspection, full ROM. Absent: tenderness, meningismus, lymphadenopathy - Respiratory Respiratory exam: Present: normal lung sounds bilaterally. Absent: respiratory distress, wheezes, rales, rhonchi, stridor, chest wall tenderness, accessory muscle use, decreased breath sounds, prolonged expiratory - Cardiovascular Cardiovascular Exam: Present: regular rate, normal rhythm, normal heart sounds. Absent: irregular rhythm, systolic murmur, diastolic murmur, rubs, gallop - GI/Abdominal GI/Abdominal exam: Present: soft, normal bowel sounds. Absent: distended, tenderness, guarding, rebound, rigid, diminished bowel sounds - Rectal Rectal exam: Present: deferred - Extremities Exam Extremities exam: Present: normal inspection, full ROM, tenderness, normal capillary refill. Absent: joint swelling - Expanded Lower Extremity Exam Right Hip exam: Present: normal inspection, full ROM, tenderness, external rotation, internal rotation, pelvic stability. Absent: swelling, abrasion, laceration, ecchymosis, deformity, crepidus, dislocation, erythema, shortening Upper Leg exam: Present: normal inspection, full ROM. Absent: tenderness, swelling Knee exam: Present: normal inspection, full ROM. Absent: tenderness, swelling Lower Leg exam: Present: normal inspection, full ROM. Absent: tenderness, swelling Ankle exam: Present: normal inspection, full ROM. Absent: tenderness, swelling Foot/Toe exam: Present: normal inspection, full ROM. Absent: tenderness, swelling Neuro vascular tendon exam: Present: no vascular compromise. Absent: pulse deficit, abnormal cap refill, motor deficit, sensory deficit, tendon deficit, extremity cold to touch, pallor, abnormal 2-point discrimination, decreased fine /light touch, foot drop, peroneal nerve deficit, significant pain with passive ROM of distal joint Gait: Positive: observed and limited by pain - Back Exam Back exam: Present: normal inspection, full ROM, paraspinal tenderness (lumbar paraspinal). Absent: tenderness, CVA tenderness (R), CVA tenderness (L), muscle spasm, vertebral tenderness, rash noted - Expanded Back Exam Expanded Back exam: Absent: saddle anesthesia Back exam: Negative Straight Leg Raising: Left, Right - Neurological Exam Neurological exam: Present: alert, oriented X3, normal gait - Psychiatric Psychiatric exam: Present: normal affect, normal mood - Skin Skin exam: Present: warm, dry, intact, normal color. Absent: rash ED Course Vital Signs 05/27/18 17:23 Temperature 98.4 F Pulse Rate 115 H Respiratory 18 Rate Blood Pressure 120/83 O2 Sat by Pulse 100 Oximetry - Reevaluation(s) Reevaluation #1: 05/27/18 19:41 Patient is speaking in full sentences with no signs of distress noted. ED Medical Decision Making - Medical Decision Making This is a 43-year-old female that presents with low back strain and right hip strain. Patient is stable was examined by me. There is no spinal tenderness. There is no cauda equina syndrome during examination. No bladder or bowel instability. Xray of lumbar spine and hip obtained and dictated by the radiologist. Patient is notified of the xray results with no questions noted by the patient. Patient received Toradol 30 mg IM and prednisone in the ED which stated symptoms has resolved and subsided. Patient is discharged with muscle relaxant and Motrin. Patient was instructed not to operate any machinery while taking muscle relaxant as they cause her drowsiness. Patient was referred to Follow-up with a primary care doctor in 3-5 days or if symptoms worsen and continue return to emergency room as soon as possible. At time of discharge, the patient does not seem toxic or ill in appearance. No acute signs of distress noted. Patient agrees to discharge treatment plan of care. No further questions noted by the patient. This chart is dictated with using [employer] Dictation Program Critical care attestation.: If time is entered above; I have spent that time in minutes in the direct care of this critically ill patient, excluding procedure time. ED Disposition Clinical Impression: Low back strain Qualifiers: Encounter type: initial encounter Qualified Code(s): S39.012A - Strain of muscle, fascia and tendon of lower back, initial encounter Strain of right hip Qualifiers: Encounter type: initial encounter Qualified Code(s): S76.011A - Strain of muscle, fascia and tendon of right hip, initial encounter Fall Qualifiers: Encounter type: initial encounter Qualified Code(s): W19.XXXA - Unspecified fall, initial encounter Disposition: - TO HOME OR SELFCARE Is pt being admited?: No Does the pt Need Aspirin: No Condition: Stable Instructions: Ibuprofen (By mouth), Cyclobenzaprine (By mouth), Low Back Strain (ED) Additional Instructions: Follow-up with your primary care doctor in 3-5 days or if symptoms worsen such as bladder or bowel stability, chest pain, short of breath, numbness or tingling sensation in extremities, headache, dizziness, visual changes, nausea vomiting, or abdominal pain, return back to emergency room as was possible. Take ibuprofen and Flexeril as prescribed. Do not operate heavy machinery while taking Flexeril due to sedation Prescriptions: Cyclobenzaprine [Flexeril] 10 mg PO QHS PRN #10 tablet PRN Reason: Muscle Spasm Ibuprofen [Motrin] 600 mg PO Q8H PRN #30 tablet PRN Reason: Pain Referrals: PRIMARY CAREMD [Primary Care Provider] - 3-5 Days RENETTA ORTIZ MD [Staff Physician] - 3-5 Days [facility] [Outside] - 3-5 Days [facility] [Outside] - 3-5 Days Forms: Work/School Release Form(ED)
[2018-05-27] MEDS ORDERED: TORADOL IM ONE (19:31)
[2018-05-27] MEDS ORDERED: DELTASONE PO ONE (19:31)
--- NOTE | 2018-05-27 20:25 | XRay Report ---
FINAL REPORT PROCEDURE: AP pelvis and frog-leg view right hip TECHNIQUE: RIGHT hip radiographs, 2 views each, including AP view of the pelvis. HISTORY: right hip pain COMPARISON: No prior studies are available for comparison. FINDINGS: No fracture or dislocation visualized. Hip joint is well preserved. Bone density appears normal. SI joints are unremarkable. IMPRESSION: Negative exam. No acute or focal abnormality is visualized.
--- NOTE | 2018-05-27 21:54 | XRay Report ---
FINAL REPORT PROCEDURE: XR SPINE LUMBOSACRAL 2-3V TECHNIQUE: Lumbar spine radiographs, including AP, lateral, and lumbosacral spot views. CPT 74555 HISTORY: low back pain COMPARISON: Prior study 04/12/2018 FINDINGS: There is mild lower lumbar scoliosis convex to the left. No fracture or subluxation is seen. Disc spaces are well maintained. Posterior elements are intact. Bone density appears normal. IMPRESSION: Mild lower lumbar scoliosis. No acute abnormalities are identified..
== END 2018-05-27 22:20 | disposition home or self-care (01) ==
LOC: ED 17:11
DX: S39.012A Strain of muscle, fascia and tendon of lower back, initial encounter (principal); S76.011A Strain of muscle, fascia and tendon of right hip, initial encounter; G43.909 Migraine, unspecified, not intractable, without status migrainosus; D64.9 Anemia, unspecified; I48.91 Unspecified atrial fibrillation; F17.200 Nicotine dependence, unspecified, uncomplicated; Z79.82 Long term (current) use of aspirin; Z86.73 Personal history of transient ischemic attack (TIA), and cerebral infarction without residual deficits; Z88.8 Allergy status to other drugs, medicaments and biological substances; W18.30XA Fall on same level, unspecified, initial encounter; Y93.89 Activity, other specified; Y99.8 Other external cause status; Y92.488 Other paved roadways as the place of occurrence of the external cause
CPT/HCPCS: 72100; 73502; 96372; 99283; J1885; J7512

== ENCOUNTER 2018-07-08 08:22 | Emergency (ER) | payer MEDICAID ==
[2018-07-08 08:29] VITALS: BP 124/82
== END 2018-07-08 09:05 | disposition left against medical advice (07) ==
LOC: ED 08:22
DX: M54.5 Low back pain (principal); Z53.21 Procedure and treatment not carried out due to patient leaving prior to being seen by health care provider

== ENCOUNTER 2021-06-11 23:26 | Emergency (ER) | payer MEDICAID ==
[2021-06-12 01:18] VITALS: BP 103/46
--- NOTE | 2021-06-12 02:18 | Emergency Department Report ---
ED General Adult HPI - General Chief complaint: Extremity Injury, Lower Stated complaint: FELL, ANKLE AND HIP PAIN Time Seen by Provider: 06/12/21 01:35 Source: patient Mode of arrival: Ambulatory Limitations: No Limitations - History of Present Illness Initial comments: 46-year-old female patient presents to the emergency department with complaints of pelvic pain and right foot/ankle pain status post mechanical fall. Patient states she was helping her grandchild disembarked from a ride at [employer] when she accidentally slipped down 2 steps and landed on her right side. There was no resulting head injury or loss of consciousness. Patient is not anticoagulated. Denies headache, neck pain, chest pain, shortness of breath, paresthesias, numbness, weakness. Denies all other complaints at this time. - Related Data Previous Rx's Medication Instructions Recorded Last Taken Type Aspirin EC [Ecotrin] 325 mg PO QDAY #30 tablet 11/05/15 12/02/15 Rx Simvastatin (Nf) [Zocor TAB] 20 mg PO QHS #30 tablet 11/05/15 12/02/15 Rx Benzonatate [Tessalon Perles] 100 mg PO Q8HR #20 capsule 12/03/15 Unknown Rx Naproxen [Naprosyn TAB] 500 mg PO BID PRN #20 tablet 12/16/15 Unknown Rx methOCARBAMOL [Robaxin TAB] 750 mg PO Q8H PRN #30 tablet 12/16/15 Unknown Rx traMADoL [Ultram 50 MG tab] 50 - 100 mg PO Q8HR PRN #20 tablet 12/16/15 Unknown Rx Fluticasone [Flonase] 1 spray NS QDAY #1 bottle 01/10/16 Unknown Rx predniSONE [Deltasone] 50 mg PO QDAY #5 tab 01/10/16 Unknown Rx Famotidine [Pepcid] 20 mg PO BID #40 tablet 02/01/17 Unknown Rx Ibuprofen [Motrin] 600 mg PO Q8H PRN #30 tablet 02/01/17 Unknown Rx HYDROcodone/APAP 5-325 [[place] 1 each PO Q6HR PRN #20 tablet 04/08/18 Unknown Rx 5/325] medroxyPROGESTERone ACETATE 10 mg PO QDAY #5 tablet 04/08/18 Unknown Rx [Provera] Cyclobenzaprine [Flexeril] 10 mg PO TID PRN #10 tablet 04/12/18 Unknown Rx HYDROcodone/APAP 5-325 [[place] 1 each PO Q6HR PRN #10 tablet 04/12/18 Unknown Rx 5/325] Cyclobenzaprine [Flexeril] 10 mg PO QHS PRN #10 tablet 05/27/18 Unknown Rx Ibuprofen [Motrin] 600 mg PO Q8H PRN #30 tablet 05/27/18 Unknown Rx Lidocaine [Lidoderm] 1 each TP BID #20 adh..patch 06/12/21 Unknown Rx Naproxen 500 mg PO BID #20 tablet 06/12/21 Unknown Rx Allergies Allergy/AdvReac Type Severity Reaction Status Date / Time acetaminophen [From Percocet] Allergy Nausea Verified 04/07/18 23:03 oxycodone HCl [From Percocet] Allergy Nausea Verified 12/15/15 15:55 ED Review of Systems ROS: Stated complaint: FELL, ANKLE AND HIP PAIN Other details as noted in HPI Other: CARDIOVASCULAR: Negative for chest pain. PULMONARY: Negative for dyspnea. GASTROINTESTINAL: Negative for abdominal pain. MUSCULOSKELETAL: Positive for hip pain, foot pain, ankle pain. NEUROLOGICAL: Negative for headache. INTEGUMENTARY: Negative for ecchymosis. ED Past Medical Hx - Past Medical History Hx Hypertension: No Hx CVA: Yes (TIA 10/2015) Hx Heart Attack/AMI: No (A-FIB) Hx Congestive Heart Failure: No Hx Diabetes: No Hx Deep Vein Thrombosis: No Hx Headaches / Migraines: Yes Hx Asthma: No Hx COPD: No Additional medical history: Low blood pressure,anemic with blood transfusion. AFIB. CHOLESTEROL, GESTATIONAL DIABETES-both resolved post - Surgical History Additional Surgical History: fibroids removed in 2009, fibroids removed again last year PP with blood transfusion - Social History Smoking Status: Current Every Day Smoker Substance Use Type: None - Medications Home Medications: Home Medications Medication Instructions Recorded Confirmed Last Taken Type Aspirin EC [Ecotrin] 325 mg PO QDAY #30 tablet 11/05/15 12/16/15 12/02/15 Rx Simvastatin (Nf) [Zocor TAB] 20 mg PO QHS #30 tablet 11/05/15 12/16/15 12/02/15 Rx Benzonatate [Tessalon Perles] 100 mg PO Q8HR #20 capsule 02/26/16 03/10/16 Unknown Rx Naproxen [Naprosyn TAB] 500 mg PO BID PRN #20 tablet 12/16/15 Unknown Rx methOCARBAMOL [Robaxin TAB] 750 mg PO Q8H PRN #30 tablet 12/16/15 Unknown Rx traMADoL [Ultram 50 MG tab] 50 - 100 mg PO Q8HR PRN #20 tablet 12/16/15 Unknown Rx Fluticasone [Flonase] 1 spray NS QDAY #1 bottle 01/10/16 Unknown Rx predniSONE [Deltasone] 50 mg PO QDAY #5 tab 01/10/16 Unknown Rx Famotidine [Pepcid] 20 mg PO BID #40 tablet 02/01/17 Unknown Rx Ibuprofen [Motrin] 600 mg PO Q8H PRN #30 tablet 02/01/17 Unknown Rx HYDROcodone/APAP 5-325 [[place] 1 each PO Q6HR PRN #20 tablet 04/08/18 Unknown Rx 5/325] medroxyPROGESTERone ACETATE 10 mg PO QDAY #5 tablet 04/08/18 Unknown Rx [Provera] Cyclobenzaprine [Flexeril] 10 mg PO TID PRN #10 tablet 04/12/18 Unknown Rx HYDROcodone/APAP 5-325 [[place] 1 each PO Q6HR PRN #10 tablet 04/12/18 Unknown Rx 5/325] Cyclobenzaprine [Flexeril] 10 mg PO QHS PRN #10 tablet 05/27/18 Unknown Rx Ibuprofen [Motrin] 600 mg PO Q8H PRN #30 tablet 05/27/18 Unknown Rx Lidocaine [Lidoderm] 1 each TP BID #20 adh..patch 06/12/21 Unknown Rx Naproxen 500 mg PO BID #20 tablet 06/12/21 Unknown Rx ED Physical Exam - General Limitations: No Limitations - Other Other exam information: General: Awake, appropriately interactive, no acute distress. Neck: Supple. Full range of motion intact. Cardiovascular: Normal peripheral perfusion. Pulmonary: No respiratory distress. Patient is speaking normally without use of accessory muscles. Skin: No apparent rashes or lesions. Neurological: No facial asymmetry. Speech is clear. Follows commands. Patient is alert and oriented. Musculoskeletal: Tenderness to palpation throughout bilateral hips without obvious deformity or dislocation. Patient is ambulatory without assistance. Pain is reproducible with internal/external rotation of the hips bilaterally. No rotational shortening or leg length discrepancy. Tenderness to palpation along the lateral malleolus of the right ankle without obvious deformity or dislocation. Tenderness to palpation across the dorsum of the right foot without overlying ecchymosis. Distal neurovascular and motor/sensory function intact. Psych: Cooperative. Appropriate mood and affect. ED Course Vital Signs 06/12/21 01:12 Temperature 97.9 F Pulse Rate 95 H Respiratory 18 Rate Blood Pressure 103/46 O2 Sat by Pulse 99 Oximetry ED Medical Decision Making - Medical Decision Making Differential diagnosis including but not limited to: sprain, strain, fracture, contusion, dislocation On reevaluation, patient remains stable. Repeat neurovascular exam remains intact. X-rays without acute process. History exam findings suggestive of soft tissue injury. No clinical indication for further diagnostic work-up on an emergent basis at this time. Patient will be discharged home with appropriate analgesics and referred to primary care provider for close outpatient follow-up. Patient expressed understanding and is agreeable to plan of care. RICE precautions discussed. Strict return precautions provided. Repeat exam is unremarkable and benign. History, exam, diagnostic testing, and current condition do not suggest worrisome pathology to warrant further testing, continued ED treatment, admission, or surgical evaluation at this point. Given the low probability of a significant medical illness, it would be more likely to result in harm than benefit to perform further testing at this stage. Discussed findings, presumptive diagnosis, need for follow-up and specific signs/symptoms that should prompt immediate return to the emergency department. Instructions were explained in detail to the patient in addition to giving written discharge information. Patient expressed understanding and was given the opportunity to ask questions, all of which were satisfactorily answered prior to discharge home. Critical care attestation.: If time is entered above; I have spent that time in minutes in the direct care of this critically ill patient, excluding procedure time. ED Disposition Clinical Impression: Contusion of pelvis Qualifiers: Encounter type: initial encounter Qualified Code(s): S30.0XXA - Contusion of lower back and pelvis, initial encounter Right ankle sprain Qualifiers: Encounter type: initial encounter Involved ligament of ankle: unspecified ligament Qualified Code(s): S93.401A - Sprain of unspecified ligament of right ankle, initial encounter Disposition: HOME / SELF CARE / HOMELESS Is pt being admited?: No Does the pt Need Aspirin: No Condition: Stable Instructions: Ankle Sprain, Contusion Additional Instructions: All x-rays are normal. Your presentation is consistent with soft tissue injury (i.e. ankle sprain, hip contusion). Take Naprosyn twice daily with food as needed for pain. Use Lidoderm patches as needed for pain. Apply ice to affected areas as needed for pain. Gradually advance physical activity slowly as tolerated. Continue to wear Eliot wrap around ankle as needed. Follow-up with primary care provider this week. Call Sunday to schedule an appointment. Return to the emergency department immediately for new or worsening symptoms. Prescriptions: Lidocaine [Lidoderm] 1 each TP BID #20 adh..patch Naproxen 500 mg PO BID #20 tablet Referrals: JOSE CORONEL MD [Staff Physician] - 3-5 Days [facility] [Provider Group] - 3-5 Days Forms: Work/School Release Form(ED) Time of Disposition: 03:27
--- NOTE | 2021-06-12 03:16 | XRay Report ---
XR PELVIS 1-2V XR FOOT 3+V RT XR ANKLE 3+V RT INDICATION: Pelvic and right lower extremity pain after fall. COMPARISON: No relevant prior imaging study available. FINDINGS: Right foot: No acute fracture or dislocation is seen. No focal soft tissue swelling. Right ankle: No acute, displaced fracture or dislocation is seen. No focal soft tissue swelling. Pelvis: No fracture or dislocation. No significant degenerative changes. IMPRESSION: 1. No acute findings. Signer Name: Jamir Triana MD Signed: 06/12/2021 3:12 AM Workstation Name: [id number]
== END 2021-06-12 06:24 | disposition home or self-care (01) ==
LOC: ED 23:26
DX: S93.401D Sprain of unspecified ligament of right ankle, subsequent encounter (principal); S30.0XXD Contusion of lower back and pelvis, subsequent encounter; W19.XXXD Unspecified fall, subsequent encounter; Z88.6 Allergy status to analgesic agent; Z88.5 Allergy status to narcotic agent; F17.200 Nicotine dependence, unspecified, uncomplicated; Z86.73 Personal history of transient ischemic attack (TIA), and cerebral infarction without residual deficits
CPT/HCPCS: 72170; 99282

== ENCOUNTER 2022-02-13 22:50 | Emergency (ER) | payer MEDICAID ==
[2022-02-14 01:29] VITALS: BP 118/68
[2022-02-14] MEDS ORDERED: ACETAMINOPHEN 500 MG TAB PO ONE (04:55)
[2022-02-14] MEDS ORDERED: IBUPROFEN 600 MG TAB PO ONE (04:55)
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
== END 2022-02-14 08:00 | disposition home or self-care (01) ==
LOC: ED 22:50
DX: S16.1XXA Strain of muscle, fascia and tendon at neck level, initial encounter (principal); G43.909 Migraine, unspecified, not intractable, without status migrainosus; Z86.73 Personal history of transient ischemic attack (TIA), and cerebral infarction without residual deficits; Z98.890 Other specified postprocedural states; Z88.5 Allergy status to narcotic agent; V89.2XXA Person injured in unspecified motor-vehicle accident, traffic, initial encounter; Y93.89 Activity, other specified; Y92.89 Other specified places as the place of occurrence of the external cause; Y99.8 Other external cause status
CPT/HCPCS: 99282